=== PATIENT | female | born 1965 | race Hispanic/Latino ===

== ENCOUNTER 2017-08-30 15:40 | Emergency (ER) | payer OTHER ==
[2017-08-30] MEDS ORDERED: TETRACAINE HCL 0.5% 4 ML OPHTH SOLN ONE (15:51)
[2017-08-30] MEDS ORDERED: FLUORESCEIN SODIUM 0.6 MG STRIP ONE (15:51)
[2017-08-30] MEDS ORDERED: NA BORATE/BORIC AC/H2O/NACL 120 ML OPHTH IRRIG SOLN ONE (15:51)
[2017-08-30] MEDS ORDERED: DIPHENHYDRAMINE HCL 25 MG CAPSULE ONE (16:14)
[2017-08-30] MEDS ORDERED: ERYTHROMYCIN BASE 0.5% OPHTH OINT 1 GM TUBE ONE (16:14)
== END 2017-08-30 16:24 | disposition home or self-care (01) ==
LOC: EDH 15:40
DX: S05.02XA Injury of conjunctiva and corneal abrasion without foreign body, left eye, initial encounter (principal); I10 Essential (primary) hypertension; E78.5 Hyperlipidemia, unspecified; X58.XXXA Exposure to other specified factors, initial encounter; Y93.89 Activity, other specified; Y92.89 Other specified places as the place of occurrence of the external cause; Y99.8 Other external cause status
CPT/HCPCS: 99284; Q0163

== ENCOUNTER → 2020-08-30 | Outpatient (CLI) | payer OTHER | END | disposition home or self-care (01) | LOC: OIH 18:08 | PROVIDERS: ATTEND Internal Medicine Cardiovascular Disease | DX: Z13.6 Encounter for screening for cardiovascular disorders (principal) | CPT/HCPCS: 75571 ==

== ENCOUNTER → 2020-10-12 | Outpatient (CLI) | payer OTHER | END | disposition home or self-care (01) | LOC: SHCH 09:24 | PROVIDERS: ATTEND Internal Medicine Cardiovascular Disease | DX: I65.23 Occlusion and stenosis of bilateral carotid arteries (principal); R09.89 Other specified symptoms and signs involving the circulatory and respiratory systems; I73.9 Peripheral vascular disease, unspecified | CPT/HCPCS: 93880; 93925 ==

== ENCOUNTER 2020-10-25 05:30 | Inpatient (IN) | payer OTHER ==
[2020-10-24 13:07] LABS: BASOPHILS % (AUTO) 0.5 % (0.0-5.0); EOSINOPHILS % (AUTO) 3.4 % (0.0-8.0); HEMATOCRIT 37.3 % (36-48); LYMPHOCYTES % (AUTO) 36.9 % (21.0-51.0); MEAN CORPUSCULAR HEMOGLOBIN 29.2 pg (27.0-33.0); MEAN CORPUSCULAR HGB CONC 34.3 g/dL (32.0-36.0); MEAN CORPUSCULAR VOLUME 85.2 fL (79-99); NEUTROPHILS % (AUTO) 53.9 % (40.0-77.0); PLATELET COUNT (AUTO) 304 K/uL (130-400); RED BLOOD CELL COUNT(AUTO) 4.38 MIL/uL (4.00-5.50); RED CELL DISTRIBUTION WIDTH 12.4 % (11.0-15.5)
[2020-10-24 14:39] VITALS: BP 164/85
[2020-10-25] VITALS (23 sets, daily range): BP systolic 94–140; BP diastolic 45–85
[~2020-10-25] VITALS: Ht 157.5 cm; Wt 73.5 kg
[~2020-10-25 05:30] MED LIST: HYDR25TA PO; LISI20TA24 PO
[2020-10-25] MEDS ORDERED: LIDOCAINE 1%-EPI 1:100,000 20 ML VIAL IJ ONE (05:50)
[2020-10-25] MEDS: LACTATED RINGERS 1000ML 1,000 ML IV SCH ×3 (06:07→08:11)
[2020-10-25] MEDS ORDERED: MIDAZOLAM HCL 1 MG/ML 2ML VIAL ONE ×2 (06:41→07:05)
[2020-10-25] MEDS ORDERED: DEXAMETHASONE SOD PHOSPHATE 10MG/ML 1ML VIAL ONE (06:41)
[2020-10-25] MEDS ORDERED: LIDOCAINE PF 100MG/5ML (2%) SYRINGE 5ML ONE (06:41)
[2020-10-25] MEDS ORDERED: ONDANSETRON 4MG INJ ONE (06:42)
[2020-10-25] MEDS ORDERED: FENTANYL CITRATE PF 50 MCG/1 ML 2ML VIAL ONE ×2 (06:42→07:30)
[2020-10-25] MEDS ORDERED: PROPOFOL 10 MG/ML 20ML VIAL IV ONE (06:42)
[2020-10-25] MEDS ORDERED: MEPERIDINE-PF 25 MG/ML SYG ONE ×2 (06:44→08:46)
[2020-10-25] MEDS ORDERED: CEFAZOLIN SODIUM 1 GM VIAL ONE (06:48)
[2020-10-25] MEDS ORDERED: PHENYLEPHRINE HCL 10 MG/ML 1ML VIAL IV ONE (07:08)
[2020-10-25] MEDS ORDERED: MEPERIDINE-PF 75 MG/ML SYG IM PRN (10:15)
[2020-10-25] MEDS ORDERED: ONDANSETRON 4MG INJ IVP PRN (10:15)
[2020-10-25] MEDS ORDERED: BISACODYL 10 MG SUPP.RECT RC PRN (10:15)
[2020-10-25] MEDS ORDERED: DOCUSATE SODIUM 100 MG CAP PO PRN (10:15)
[2020-10-25] MEDS ORDERED: IBUPROFEN 600 MG TABLET PO PRN (10:15)
[2020-10-25] MEDS ORDERED: PROMETHAZINE HCL 25 MG/ML 1ML AMPULE IM PRN ×2 (10:15)
[2020-10-25] MEDS ORDERED: SIMETHICONE 80 MG TAB.CHEW PO PRN (10:15)
[2020-10-25] MEDS: DEXTROSE 5 %-0.45 % NACL 1,000 ML IV PRN (17:30)
[2020-10-25] MEDS: ACETAMINOPHEN WITH CODEINE 1 TAB TAB PO PRN (17:41)
[2020-10-26] MEDS: DEXTROSE 5 %-0.45 % NACL 1,000 ML IV PRN (01:30)
[2020-10-26] MEDS: ACETAMINOPHEN WITH CODEINE 1 TAB TAB PO PRN (03:36)
[2020-10-26 04:10] VITALS: BP 115/64
[2020-10-26 05:27] LABS: HEMATOCRIT 33.3 % (36-48); MEAN CORPUSCULAR HEMOGLOBIN 28.7 pg (27.0-33.0); MEAN CORPUSCULAR HGB CONC 33.6 g/dL (32.0-36.0); MEAN CORPUSCULAR VOLUME 85.4 fL (79-99); RED BLOOD CELL COUNT(AUTO) 3.9 MIL/uL (4.00-5.50); RED CELL DISTRIBUTION WIDTH 12.2 % (11.0-15.5); WHITE BLOOD COUNT (AUTO) 16.8 K/uL (4.8-10.8)
[2020-10-26 07:13] VITALS: BP 121/79
[2020-10-26] MEDS ORDERED: IBUPROFEN 800 MG TAB PO PRN (08:30)
[2020-10-26] MEDS ORDERED: ACETAMINOPHEN WITH CODEINE 1 TAB TAB PO PRN (08:30)
[2020-10-26] MEDS ORDERED: HYDROCODONE/ACETAMINOPHEN 5/325 MG TAB PO PRN (08:30)
[2020-10-26] MEDS ORDERED: DOCUSATE SODIUM 100 MG CAP PO PRN (08:30)
[2020-10-26] MEDS ORDERED: SIMETHICONE 80 MG TAB.CHEW PO PRN (08:30)
[2020-10-26] MEDS ORDERED: BISACODYL 10 MG SUPP.RECT RC PRN (08:30)
[2020-10-26] MEDS ORDERED: NITROFURANTOIN MONOHYD/M-CRYST 100 MG CAPSULE PO ONE (08:55)
[2020-10-26] MEDS ORDERED: NITROFURANTOIN MONOHYD/M-CRYST 100 MG CAPSULE PO SCH (09:00)
[2020-10-26] MEDS ORDERED: ACET1TAB25 PO (12:50)
[2020-10-26] MEDS ORDERED: NITR100C4 PO (12:50)
[2020-10-26] MEDS ORDERED: ACETAMINOPHEN WITH CODEINE 1 TAB TAB ONE (15:06)
[2020-10-26 15:16] VITALS: BP 116/73
== END 2020-10-26 16:30 | disposition home or self-care (01) | DRG 748 ==
LOC: DAH 05:30 → WSH 05:31
PROVIDERS: ADMIT Obstetrics & Gynecology; ATTEND Obstetrics & Gynecology
PROC: 0TQD4ZZ Repair Urethra, Percutaneous Endoscopic Approach (ICD-10-PCS; 2020-10-25)
PROC: 0JQC0ZZ Repair Pelvic Region Subcutaneous Tissue and Fascia, Open Approach (ICD-10-PCS; principal; 2020-10-25 07:08)
PROC: 0T9B30Z Drainage of Bladder with Drainage Device, Percutaneous Approach (ICD-10-PCS; 2020-10-25 07:08)
PROC: 0JQC0ZZ Repair Pelvic Region Subcutaneous Tissue and Fascia, Open Approach (ICD-10-PCS; 2020-10-25 07:08)
DX: N81.10 Cystocele, unspecified (principal); N81.6 Rectocele; N39.3 Stress incontinence (female) (male); Z20.822 Contact with and (suspected) exposure to COVID-19
CPT/HCPCS: 36415; 85025; 85027; 86850; 86900; 86901; A4344; A4351; C9803; G0378; J0690; J1100; J2001; J2175; J2250; J2370; J2405; J2704; J3010; J3490; J7120; U0003

== ENCOUNTER → 2020-11-11 | Outpatient (CLI) | payer OTHER ==
[~2020-11-11] MED LIST changes: +ACET1TAB25 PO; +NITR100C4 PO
== END | disposition home or self-care (01) ==
LOC: SHCH 09:39
PROVIDERS: ATTEND Internal Medicine Cardiovascular Disease
DX: R07.9 Chest pain, unspecified (principal)
CPT/HCPCS: 93306; 93356